=== PATIENT | female | born 1940 | race Caucasian/White ===

== ENCOUNTER 2016-10-14 09:58 | Outpatient (CLI) | payer MEDICARE | END 2016-10-14 09:59 | disposition home or self-care (01) | DX: E78.5 Hyperlipidemia, unspecified (principal); E87.1 Hypo-osmolality and hyponatremia; I10 Essential (primary) hypertension; E03.9 Hypothyroidism, unspecified; D64.9 Anemia, unspecified ==

== ENCOUNTER 2017-06-28 08:00 | Outpatient (CLI) | payer MEDICARE ==
[2017-06-28 12:34] LABS: BASOPHILS % (AUTO) 0.9 %; EOSINOPHILS # (AUTO) 0.1 10^3/uL (0.0-0.7); EOSINOPHILS % (AUTO) 2.6 %; HCT - HEMATOCRIT 36.4 % (37.0-47.0); HGB - HEMOGLOBIN 12.5 g/dL (12.0-16.0); LYMPHOCYTES % (AUTO) 21.6 %; MEAN CORPUSCULAR HEMOGLOBIN 32.6 pg (27.0-31.0); MEAN CORPUSCULAR HGB CONC 34.4 g/dL (32.0-36.0); MEAN CORPUSCULAR VOLUME 94.8 fL (81.0-99.0); MEAN PLATELET VOLUME 8.1 fL (7.9-10.8); MONOCYTES # (AUTO) 0.3 10^3/uL (0.0-1.0); MONOCYTES % (AUTO) 7.4 %; NEUTROPHILS # (AUTO) 3.1 10^3/uL (1.5-6.6); NEUTROPHILS % (AUTO) 67.5 %; NUCLEATED RED BLOOD CELLS AUTO 0.1 /100WBC; RED BLOOD COUNT 3.84 10^6/uL (4.20-5.40); RED CELL DISTRIBUTION WIDTH 12.7 % (12.0-15.0); UNCORRECTED WHITE BLOOD COUNT 4.6 x10^3/uL; WHITE BLOOD COUNT 4.6 x10^3/uL (4.8-10.8)
[2017-06-28 12:58] LABS: ALBUMIN/GLOBULIN RATIO 1.3 (1.0-2.2); BILIRUBIN,TOTAL 0.5 mg/dL (0.2-1.0); BUN - BLOOD UREA NITROGEN 30 mg/dL (6-20); CALCIUM 9.8 mg/dL (8.5-10.3); CARBON DIOXIDE - CO2 24 mmol/L (21-32); CHLORIDE 107 mmol/L (101-111); CHOL/HDL RATIO 2.1 (<4.4); CHOLESTEROL 165 mg/dL; CREATININE 1.1 mg/dL (0.4-1.0); GFR - MDRD 48 (>89); GLUCOSE 107 mg/dL (70-100); HDL CHOLESTEROL 78 mg/dL; LDL/HDL RATIO 0.9 (<4.4); SODIUM 141 mmol/L (135-145); TOTAL PROTEIN 7.5 g/dL (6.7-8.2); TRIGLYCERIDES 100 mg/dL; VLDL CHOLESTEROL 20 mg/dL
== END 2017-06-28 08:01 | disposition home or self-care (01) ==
LOC: LAB.WCP 08:00
PROVIDERS: ATTEND Family Medicine
DX: I10 Essential (primary) hypertension (principal); E78.5 Hyperlipidemia, unspecified; D64.9 Anemia, unspecified
CPT/HCPCS: 36415; 80053; 80061; 84443; 85025

== ENCOUNTER 2017-12-10 08:00 | Outpatient (CLI) | payer MEDICARE ==
[2017-12-10 12:12] LABS: EOSINOPHILS # (AUTO) 0.2 10^3/uL (0.0-0.7); EOSINOPHILS % (AUTO) 3.3 %; HGB - HEMOGLOBIN 12.7 g/dL (12.0-16.0); LYMPHOCYTES # (AUTO) 1.3 10^3/uL (1.5-3.5); LYMPHOCYTES % (AUTO) 29.2 %; MEAN CORPUSCULAR HEMOGLOBIN 32.4 pg (27.0-31.0); MEAN CORPUSCULAR HGB CONC 34.2 g/dL (32.0-36.0); MEAN CORPUSCULAR VOLUME 94.8 fL (81.0-99.0); MEAN PLATELET VOLUME 8.1 fL (7.9-10.8); MONOCYTES # (AUTO) 0.4 10^3/uL (0.0-1.0); MONOCYTES % (AUTO) 8.1 %; NEUTROPHILS # (AUTO) 2.7 10^3/uL (1.5-6.6); NEUTROPHILS % (AUTO) 58.4 %; PLT - PLATELET COUNT 248 10^3/uL (130-450); RED BLOOD COUNT 3.92 10^6/uL (4.20-5.40); RED CELL DISTRIBUTION WIDTH 13.2 % (12.0-15.0); WHITE BLOOD COUNT 4.6 x10^3/uL (4.8-10.8)
[2017-12-10 12:37] LABS: ALBUMIN/GLOBULIN RATIO 1.3 (1.0-2.2); ALKALINE PHOSPHATASE 84 IU/L (42-121); ALT ALANINE AMINOTRANSFERASE 15 IU/L (10-60); AST ASPARTATE AMINOTRANSFERASE 23 IU/L (10-42); BILIRUBIN,TOTAL 0.8 mg/dL (0.2-1.0); BUN - BLOOD UREA NITROGEN 30 mg/dL (6-20); CALCIUM 9.7 mg/dL (8.5-10.3); CARBON DIOXIDE - CO2 25 mmol/L (21-32); CHLORIDE 105 mmol/L (101-111); CHOL/HDL RATIO 2.2 (<4.4); CHOLESTEROL 166 mg/dL; CREATININE 1.1 mg/dL (0.4-1.0); GFR - MDRD 48 (>89); GLUCOSE 101 mg/dL (70-100); HDL CHOLESTEROL 75 mg/dL; LDL CHOLESTEROL,CALCULATED 77 mg/dL; SODIUM 139 mmol/L (135-145); TOTAL PROTEIN 7.2 g/dL (6.7-8.2); VLDL CHOLESTEROL 14 mg/dL
== END 2017-12-10 08:01 | disposition home or self-care (01) ==
LOC: LAB.WCP 08:00
PROVIDERS: ATTEND Family Medicine
DX: E78.5 Hyperlipidemia, unspecified (principal); E03.9 Hypothyroidism, unspecified; I10 Essential (primary) hypertension
CPT/HCPCS: 36415; 80053; 80061; 83721; 84443; 85025

== ENCOUNTER 2018-04-17 17:39 | Observation (INO) | payer MEDICARE ==
[2018-04-17 18:07] LABS: BASOPHILS # (AUTO) 0.1 10^3/uL (0.0-0.1); BASOPHILS % (AUTO) 1.1 %; EOSINOPHILS # (AUTO) 0.2 10^3/uL (0.0-0.7); HGB - HEMOGLOBIN 12.4 g/dL (12.0-16.0); LYMPHOCYTES # (AUTO) 1.4 10^3/uL (1.5-3.5); LYMPHOCYTES % (AUTO) 26.3 %; MEAN CORPUSCULAR HEMOGLOBIN 33.3 pg (27.0-31.0); MEAN CORPUSCULAR HGB CONC 35.1 g/dL (32.0-36.0); MEAN CORPUSCULAR VOLUME 94.9 fL (81.0-99.0); MEAN PLATELET VOLUME 7.7 fL (7.9-10.8); MONOCYTES # (AUTO) 0.5 10^3/uL (0.0-1.0); MONOCYTES % (AUTO) 10.6 %; NEUTROPHILS # (AUTO) 3.1 10^3/uL (1.5-6.6); PLT - PLATELET COUNT 254 10^3/uL (130-450); RED BLOOD COUNT 3.73 10^6/uL (4.20-5.40); RED CELL DISTRIBUTION WIDTH 13.4 % (12.0-15.0); WHITE BLOOD COUNT 5.2 x10^3/uL (4.8-10.8)
--- NOTE | 2018-04-17 18:08 | ED Physician Documentation ---
PD HPI CHEST PAIN - Stated complaint Stated Complaint: HIGH PLUSE - Chief complaint Chief Complaint: Cardiac - History obtained from History obtained from: Family - History of Present Illness Timing - onset: Other (History of [employer] pacemaker placed in 2016 for complete heart block. Followed now by Dr. Chavez in [place]. Had a flu shot Wednesday. Wednesday noticed that when she slept she could not hear her heartbeat like normal and has had persistently high pulse rate since then noted on the monitor of 130 or so. She is completely asymptomatic without chest pain, dizziness, or trouble breathing.) Review of Systems Ten Systems: 10 systems reviewed and negative Constitutional: denies: Fever, Chills Cardiac: denies: Chest pain / pressure, Palpitations Respiratory: denies: Dyspnea, Cough PD PAST MEDICAL HISTORY - Past Medical History Past Medical History: Yes Cardiovascular: Hypertension, High cholesterol Respiratory: None Endocrine/Autoimmune: HyPOthyroidism GI: None : None HEENT: None Psych: Claustrophobia Musculoskeletal: Osteoarthritis Derm: None - Past Surgical History Past Surgical History: Yes General: Cholecystectomy, Appendectomy, Colonoscopy Ortho: Hip replacement, Knee replacement /RAILROAD REPAIRER: Hysterectomy Cardiovascular: Pacemaker HEENT: Cataracts, Tonsil/Adenoidectomy - Present Medications Home Medications: Ambulatory Orders Medication Instructions Recorded Confirmed Cholecalciferol (Vitamin D3) 2,000 units PO DAILY 04/12/14 10/14/15 [Vitamin D-3] Folic Acid/Multivit-Min/Lutein 1 each PO DAILY 04/12/14 10/14/15 [Centrum Silver Chewable Tablet] Levothyroxine [Synthroid] 75 mcg PO QDAC 04/12/14 10/14/15 Lisinopril 40 mg PO DAILY 04/12/14 10/14/15 Simvastatin 40 mg PO QPM 04/12/14 10/14/15 Acetaminophen 500 mg PO Q4H PRN 10/08/15 10/14/15 Diclofenac Sodium/Misoprostol 1 each PO DAILY 10/08/15 10/14/15 [Diclofenac-Misoprost 75-200 Tb] [place]-3S/Dha/Epa/Fish Oil [Fish 1 cap PO DAILY 10/08/15 10/14/15 Oil 1,200 mg Softgel] amLODIPine [Norvasc] 5 mg ORAL DAILY 10/08/15 10/14/15 HYDROcod/ACETAM 5/325 [[place] 5/325] 1 tab PO Q6H PRN 10/09/15 10/14/15 - Allergies Allergies/Adverse Reactions: Allergies Allergy/AdvReac Type Severity Reaction Status Date / Time Sulfa (Sulfonamide AdvReac Intermediate Nausea Verified 04/12/14 11:03 Antibiotics) ibuprofen AdvReac Nausea Verified 10/03/15 14:36 oxycodone HCl * AdvReac Nausea Verified 10/03/15 14:36 [From Percocet] - Social History Does the pt smoke?: No Smoking Status: Never smoker Does the pt drink ETOH?: Yes Does the pt have substance abuse?: No - Family History Family history: reports: Non contributory - Immunizations Immunizations are current?: Yes PD ED PE NORMAL - Vitals Vital signs reviewed: Yes - General General: Alert and oriented X 3, No acute distress - HEENT HEENT: PERRL, EOMI - Neck Neck: Supple, no meningeal sign, No bony TTP - Cardiac Cardiac: RRR (Tachycardic without murmur) - Respiratory Respiratory: No respiratory distress, Clear bilaterally - Abdomen Abdomen: Normal bowel sounds, Soft, Non tender - Back Back: No CVA TTP, No spinal TTP - Derm Derm: Normal color, Warm and dry - Extremities Extremities: No edema, No calf tenderness / cord - Neuro Neuro: Alert and oriented X 3, Normal speech Results - Vitals Vitals: Vital Signs - 24 hr 04/17/18 17:46 Heart Rate 130 H Respiratory 16 Rate Blood Pressure 181/103 H O2 Saturation 98 Oxygen O2 Source [With Activity] Room air O2 Source [Without Activity] Room air O2 Source Room air - EKG (time done) 1747 Rate: Rate (enter#) (130) Rhythm: Paced (Ventricular paced) Computer interpretation: Agree with computer - Rads (name of study) 2v chest Radiology: EMP read contemporaneously (Large heart without CHF, no obvious problem with her pacemaker leads, bibasilar interstitial lung disease.) PD MEDICAL DECISION MAKING - ED course ED course: 78-year-old woman presents with an asymptomatic ventricular paced, pacemaker mediated tachycardia. I placed a magnet on her and she went down to a paced rate of 100, still asymptomatic. Spoke with her family resource management specialist on-call, Dr. Pang for Dr. Chavez who felt that it was probably an underlying atrial tachycardia and recommended a trial of adenosine and then long-term beta or calcium channel melissa pending follow-up. She was administered 6 mg of adenosine followed by 12 mg of adenosine, both rapid IV push without any change in her rate or rhythm. This was followed by metoprolol 5 mg IV. This had no change, the metoprolol was repeated, still without change, she was administered divided doses of diltiazem, still with no clinical change in a heart rate of 130. Case was discussed by phone with Dr. Joseph. I cannot discharge her obviously with a heart rate of [address] her in observation for medical management, she feels she likely has underlying atrial flutter. And she will be interrogated in the morning. - Sepsis Event Vital Signs: Vital Signs - 24 hr 04/17/18 17:46 Heart Rate 130 H Respiratory 16 Rate Blood Pressure 181/103 H O2 Saturation 98 Oxygen O2 Source [With Activity] Room air O2 Source [Without Activity] Room air O2 Source Room air Departure - Departure Disposition: ED Place in Observation Clinical Impression: Dehydration, Tachycardia, Pacemaker Condition: Serious
[2018-04-17 18:21] LABS: ALBUMIN/GLOBULIN RATIO 1.3 (1.0-2.2); BILIRUBIN,TOTAL 0.4 mg/dL (0.2-1.0); CALCIUM 9.3 mg/dL (8.5-10.3); CREATININE 1.6 mg/dL (0.4-1.0); MAGNESIUM 1.7 mg/dL (1.7-2.8); TOTAL PROTEIN 7.2 g/dL (6.7-8.2)
[2018-04-17] MEDS ORDERED: ADENOSINE 6 MG/2 ML VIAL IVP STA ×2 (19:03→19:12)
[2018-04-17] MEDS ORDERED: ADENOSINE 6 MG/2 ML VIAL IVP ONE (19:05)
[2018-04-17] MEDS ORDERED: METOPROLOL 5 MG/5 ML VIAL IVP STA ×2 (19:12→19:27)
--- NOTE | 2018-04-17 19:15 | XRAY Report ---
Reason: tachycardiac Procedure Date: 04/17/2018 Accession Number: [id number] / [id number] Procedure: XR - Chest 2 View X-Ray CPT Code: 78455 FULL RESULT: EXAM: CHEST RADIOGRAPHY EXAM DATE: 04/17/2018 06:41 PM. CLINICAL HISTORY: Tachycardiac. COMPARISON: CHEST 2 VIEW PA/LAT 10/08/2015 7:09 PM. TECHNIQUE: 2 views. FINDINGS: Lungs/Pleura: Mild basilar predominant interstitial lung disease. No focal opacities evident. No pleural effusion. No pneumothorax. Normal volumes. Mediastinum: Large heart. Minimal aortic calcification. Other: No compression fractures. Interval placement of dual lead left pacemaker. Advanced degenerative changes of both shoulders. IMPRESSION: 1. Large heart without CHF or acute pulmonary abnormalities. 2. Mild chronic basilar predominant interstitial lung disease. RADIA
[2018-04-17] MEDS ORDERED: diltiaZEM INJ 5 MG/ML VIAL IVP STA ×2 (20:05→20:34)
[2018-04-17] MEDS ORDERED: ACETAMINOPHEN 325 MG TABLET PO PRN (20:57)
[2018-04-17] MEDS ORDERED: ZOLPIDEM 5 MG TABLET PO PRN (20:57)
[2018-04-17] MEDS ORDERED: SODIUM CHLORIDE FLUSH 0.9% 10 ML SYRINGE IVP PRN (20:57)
[2018-04-17] MEDS ORDERED: SODIUM CHLORIDE 0.9% 1,000 ML IV SCH (21:00)
[2018-04-17 21:42] LABS: INR 1.1 (0.8-1.2); PT - PROTHROMBIN TIME 12.7 secs (9.9-12.6)
--- NOTE | 2018-04-18 00:13 | HISTORY & PHYSICAL EXAMINATION ---
DATE OF SERVICE: 04/17/2018 Physician: Anitha Joseph MD HISTORY OF PRESENT ILLNESS: This is an 78-year-old white female with a history of third-degree heart block, which required a pacemaker placement 2 years ago. This was around the time that she required hip surgery after falling and sustaining a hip fracture. She also has a history of hypertension, hyperlipidemia, hypothyroidism, DJD, status post cholecystectomy, appendectomy, total hysterectomy, cataract surgery, tonsil surgery and knee replacement. The patient went to doctor's visit and reports everything was fine except for "white coat hypertension." She received a flu shot at this visit. Following that, she noticed that she did not "hear her pulse in her ear", which she normally does when she falls asleep. This reoccurred on the second day and by the third day, she took her pulse and found it to be about 119. Once again, she did not worry about this until the following day when she repeated it, and it was again 119 and she called her doctor and the covering doctor advised to come to the emergency room. In the ER tonight, she was found to have a heart rate of 130, ventricular paced; which did not respond to Adenosine 6 mg, 12 mg, Metoprolol 5 mg IV x2, or Diltiazem 10 mg IV. The emergency room doctor reached out to the covering Stable Attendant for Dr. Chavez and that doctor advised that [employer] reprogram of her pacemaker since the reprogramming device was not transmitting from the ER over to [employer] when tried. The patient feels none of her rapid heart rates, feels no palpitations and has never had tachycardia before. She has no other symptoms. In general, specifically no dyspnea, orthopnea, chest pain, lightheadedness or syncope. She has had no change to medications. She has been on a trip of 2-1/2 weeks with her in an , but this was unremarkable. PAST MEDICAL HISTORY: Hypertension, hyperlipidemia, pacemaker placed 2 years ago, DJD. ALLERGIES: SULFA, MOTRIN, AND OXYCODONE. MEDICATIONS: 1. Amlodipine 5 mg daily. 2. Simvastatin 40 mg every night 3. [place] D3 daily. 4. Lisinopril 40 mg daily. 5. Synthroid 75 mcg daily. 6. Dana 5/325 q.6 hours p.r.n. arthritis pain. 7. Diclofenac 1 tablet daily. 8. Vitamin D3 2000 units daily. 9. Folic acid daily. 10. Centrum Silver daily. SOCIAL HISTORY: The patient is a nonsmoker, drinks rare alcohol, no illicit drug use. FAMILY HISTORY: Known heart diseases. REVIEW OF SYSTEMS: Comprehensive review of systems was performed and the pertinent positives are in the HPI. PHYSICAL EXAMINATION: GENERAL: Elderly white female who appears younger than her age. VITAL SIGNS: Blood pressure 120/96, heart rate 130 and regular, afebrile, room air saturation 94%. HEENT: Unremarkable. Oral mucosa is moist. NECK: Without JVD in a vertical position. No carotid bruits. LUNGS: Clear. HEART: Heart sounds are tachycardic. No murmurs. ABDOMEN: Soft, nontender. Normal bowel sounds. EXTREMITIES: 1+ pretibial edema. No clubbing or cyanosis. NEUROLOGIC: Intact. LABORATORIES: Normal electrolytes. BUN is 43. Creatinine 1.6, magnesium 1.7. Normal liver test normal. INR. White blood count 5.2, hemoglobin 12.4, platelet count 254. IMAGING DATA: Chest x-ray: Cardiomegaly and no acute lung disease. DIAGNOSTIC DATA: EKG: Ventricular pacing at a rate of 130. IMPRESSION/DIAGNOSES 1. Dehydration as evidenced by the elevated BUN and creatinine, which may be adding to the tachycardia. 2. Tachycardia. 3. Pacemaker-mediated tachycardia potentially versus atrial tachycardia with ventricular tracking. PLAN: Place the patient in Observation, on telemetry. Hold the ANDREW inhibitor and amlodipine; but continue her other medications. This is planned because of her multiple doses of heart rate slowing medications that she received, which may further drop her pressure. Also no amlodipine today, but will start Cardizem tomorrow. Soum was contacted from the ER and I just called myself to confirm that a termite control representative is coming tomorrow for reprogramming of her pacemaker. Then the underlying rhythm will be determined and if this is atrial flutter, further AV prema slowing medication may be needed such as beta blockers, higher Cardizem, or digoxin. An Echo will be ordered because of the cardiomegaly and to establish if there is any systolic heart failure since that would affect her CHADS score since she is over 75. If she has atrial flutter, consider an anticoagulant. We will check troponins x3 to rule out a silent cardiac event as the cause of the atrial tachycardia. We will also check a TSH to R/O thyroid med excess. CODE STATUS: FULL CODE. DVT PROPHYLAXIS: SCDs. ATTESTATION: The patient is expected to be discharged or transferred to another facility within 96 hours: Yes. cc: Doris Villegas MD TD: 04/17/2018 23:52 MTDD
[2018-04-18] MEDS: APIXABAN 2.5 MG TABLET PO SCH ×2 (00:31→08:52)
[2018-04-18] MEDS ORDERED: APIXABAN 2.5 MG TABLET PO SCH (01:00)
[2018-04-18] MEDS: SODIUM CHLORIDE FLUSH 0.9% 10 ML SYRINGE IVP SCH ×2 (03:18→08:53)
[2018-04-18 06:30] LABS: CALCIUM 9.3 mg/dL (8.5-10.3); CREATININE 1.2 mg/dL (0.4-1.0)
[2018-04-18] MEDS ORDERED: LEVOTHYROXINE 75 MCG TABLET PO SCH (07:00)
[2018-04-18] MEDS ORDERED: POLYETHYLENE GLYCOL 3350 17 GM PACKET PO SCH (09:00)
[2018-04-18] MEDS ORDERED: CHOLECALCIFEROL 1,000 UNIT TABLET PO SCH (09:00)
[2018-04-18] MEDS ORDERED: DICLOFENAC MISOPROSTOL PO SCH (09:00)
[2018-04-18] MEDS ORDERED: OMEGA-3 ACID ETHYL ESTERS 1 GM CAPSULE PO SCH (09:00)
[2018-04-18 09:58] VITALS: BP 119/59
--- NOTE | 2018-04-18 11:12 | Discharge Plan ---
Discharge Plan Disposition: 01 Home, Self Care Condition: Poor Diet: Regular Activity Restrictions: Activity as Tolerated Shower Restrictions: No (fall precaution) Instruction Topics: ED Pacer AICD Dc Additional Instructions or Follow Up instructions: You may follow up your PCP in one week, and follow up your smooth plater in two weeks. [employer] interrogated your pacemaker at hospital. Your pacemaker works well at HR 70 now. Should your symptoms return or worsen, you may present ER or call 911, or call your smooth plater or PCP for help. No Smoking: If you smoke, Please STOP! Call for help. Follow-up with: Doris Villegas MD [Primary Care Provider] -
--- NOTE | 2018-04-18 11:28 | DISCHARGE SUMMARY ---
Discharge Summary Discharge Date: 04/18/18 Discharging Provider: STORM Primary Care Provider: Dr. Villegas Condition at Discharge: Good Discharge Disposition: 01 Home, Self Care Discharge Facility Name: home - DIAGNOSES Admission Diagnoses: 1, malfunction of pacemaker 2, tachycardia, asymptomatic 3, dehydration Discharge Diagnoses with Status of Each Condition: 1, malfunction of pacemaker the pacemaker was interrogated by [employer] md senior research scientist, her pace return to her baseline as HR 70. Tele monitor continue to monitor pt and confirm her paced pause at 70. [employer] md senior research scientist confirm pt's pacemaker is working. pt is advise follow PCP and claims supervisor pt is asymptomatic, without any complains. all troponin serial are unremarkable 2, tachycardia, asymptomatic resolved 3, dehydration resolved - HPI History of Present Illness: pt was admitted for pacemaker malfunction. pt had hx of afib with Eliquis. After the pacemaker was interrogated by [employer] md senior research scientist, her pace return t o her baseline as HR 70. pt's ECHO are unremarkable. pt denies any complaints, no chest pain, troponin serial are unremarkable. Pt was d/c and follow her home meds regimen, PCP and claims supervisor. - ALLERGIES Allergies/Adverse Reactions: Allergies Allergy/AdvReac Type Severity Reaction Status Date / Time Sulfa (Sulfonamide AdvReac Intermediate Nausea Verified 04/12/14 11:03 Antibiotics) ibuprofen AdvReac Nausea Verified 10/03/15 14:36 oxycodone HCl * AdvReac Nausea Verified 10/03/15 14:36 [From Percocet] - MEDICATIONS Home Medications: Ambulatory Orders Medication Instructions Recorded Confirmed Cholecalciferol (Vitamin D3) 2,000 units PO DAILY 04/12/14 04/18/18 [Vitamin D3] Folic Acid/Multivit-Min/Lutein 1 each PO DAILY 04/12/14 04/18/18 [Centrum Silver Chewable Tablet] Levothyroxine [Synthroid] 75 mcg PO QDAC 04/12/14 04/18/18 Acetaminophen 500 mg PO Q4H PRN 10/08/15 04/18/18 Diclofenac Sodium/Misoprostol 1 tab PO DAILY 10/08/15 04/18/18 [Diclofenac-Misoprost 75-200 Tb] [place]-3S/Dha/Epa/Fish Oil [Fish 1 cap PO DAILY 10/08/15 04/18/18 Oil 1,200 mg Softgel] amLODIPine [Norvasc] 2.5 mg ORAL DAILY 10/08/15 04/18/18 Apixaban [Eliquis] 2.5 mg PO BID 04/18/18 04/18/18 Atorvastatin Calcium 20 mg PO QPM 04/18/18 04/18/18 Lisinopril 10 mg PO DAILY 04/18/18 04/18/18 Metoprolol Tartrate 12.5 mg PO DAILY 04/18/18 04/18/18 - PHYSICAL EXAM AT DISCHARGE General Appearance: positive: No acute distress, Alert. negative: Lethargic Eyes Bilateral: positive: Normal inspection, PERRL, No lid inflammation, Conjunctivae nml ENT: positive: ENT inspection nml, Pharynx nml, No signs of dehydration. negative: Purulent nasal drainage, Pharyngeal erythema, Oral lesions Neck: positive: Nml inspection, Thyroid nml, No JVD, Trachea midline. negative: Thyromegaly, Lymphadenopathy (R), Lymphadenopathy (L), Stiff neck, Carotid br uit, Swelling/bruising, Tracheal deviation Respiratory: positive: Chest non-tender, No respiratory distress, Breath sounds nml. negative: Wheezes, Rales, Rhonchi Cardiovascular: positive: Regular rate & rhythm, No murmur, No gallop. negative: Irregularly irregular, Extrasystoles, Tachycardia, Bradycardia, JVD present, Systolic murmur, Diastolic murmur Peripheral Pulses: positive: 2+ Abdomen: positive: Non-tender, No organomegaly, Nml bowel sounds, No distention. negative: Tenderness, Guarding, Rebound Back: positive: Nml inspection. negative: CVA tenderness (R), CVA tenderness (L) Skin: positive: Color nml, No rash, Warm, Dry. negative: Cyanosis, Diaphoresis, Pallor Extremities: positive: Non-tender, Full ROM, Nml appearance. negative: Calf tenderness, Joint swelling, Ralph's sign/cords Neurologic/Psychiatric: positive: Oriented x3, Motor nml, Sensation nml, Mood/affect nml. negative: Weakness, Sensory loss, Facial droop, Slurred/abnml speech, Depressed mood/affect - LABS Result Diagrams: 04/17/18 18:00 04/18/18 05:23 - FOLLOW UP Follow Up: You may follow up your PCP in one week, and follow up your claims supervisor in two weeks. [employer] interrogated your pacemaker at hospital. Your pacemaker works well at HR 70 now. Should your symptoms return or worsen, you may present ER or call 911, or call your claims supervisor or PCP for help. - TIME SPENT Time Spent in Discharge (Minutes): 50
== END 2018-04-18 12:03 | disposition home or self-care (01) ==
LOC: ED 17:39 → MS3 20:57
PROVIDERS: ADMIT Internal Medicine; ATTEND Nurse Practitioner Gerontology
DX: T82.119A Breakdown (mechanical) of unspecified cardiac electronic device, initial encounter (principal); R00.0 Tachycardia, unspecified; E86.0 Dehydration; I44.2 Atrioventricular block, complete; I48.91 Unspecified atrial fibrillation; I11.9 Hypertensive heart disease without heart failure; E03.9 Hypothyroidism, unspecified; E78.5 Hyperlipidemia, unspecified; M19.90 Unspecified osteoarthritis, unspecified site; Z79.899 Other long term (current) drug therapy; Z95.0 Presence of cardiac pacemaker
CPT/HCPCS: 36415; 71046; 80048; 80053; 83690; 83735; 84443; 84484; 85025; 85610; 93005; 93306; 96374; 96375; 96376; 99284; 99285; A9270; G0378; J0153

== ENCOUNTER 2018-07-14 14:17 | Outpatient (CLI) | payer MEDICARE ==
--- NOTE | 2018-07-15 09:43 | DEXA Report ---
Reason: OSTEOPENIA Procedure Date: 07/14/2018 Accession Number: [id number] / [id number] Procedure: DEX - Dexa Spine and/or Hip CPT Code: FULL RESULT: EXAM: Dexa Spine and/or Hip DATE: 07/14/2018 2:59 PM CLINICAL HISTORY: OSTEOPENIA TECHNIQUE: Dual energy x-ray absorptiometry (DXA) was performed on a [email or web address] System. Regions measured are the AP Spine, femoral neck, and if needed forearm. COMPARISON: 01/07/2016. In accordance with the International Society for Clinical Densitometry (ISCD) guidelines, data from previous exams may be reanalyzed using current recommendations and techniques. This is done to allow a more accurate basis for comparison with the current study. FINDINGS: The data for the lumbar spine is as follows: BMD (g/cm/cm) T-SCORE Z-SCORE REGION L1 1.180 0.4 2.0 L2 1.560 3.0 4.5 L3 1.595 3.3 4.8 L4 1.366 1.4 2.9 TOTAL 1.429 2.1 3.6 NOTE: All evaluable vertebrae are used for classification The data for the hip is as follows: BMD (g/cm/cm) T-SCORE Z-SCORE REGION Neck 0.736 -2.2 -0.2 TOTAL 0.702 -2.4 -0.6 NOTE: The femoral neck or total proximal femur, whichever is lowest, is used for classification. DXA RESULTS SUMMARY: Spine SCAN DATE AGE BMD CHANGE VS CHANGE VS PREVIOUS PREVIOUS % 07[birth year]14/2018 [age] 1.429 -0.049* -3.3* 01/07/2016 [age] 1.478 * Denotes significant change at the 95% confidence level. Denotes dissimilar scan types or analysis methods. DXA RESULTS SUMMARY: Hip SCAN DATE [age]GE BMD CHANGE VS CHANGE VS PREVIOUS PREVIOUS % [birth year]14[birth year]2018 78.4 0.702 -0.098* -12.3* 01/07/2016 [age] 0.800 * Denotes significant change at the 95% confidence level. Denotes dissimilar scan types or analysis methods. IMPRESSION: THE WHO CLASSIFICATION BASED ON THE INTERNATIONAL REFERENCE STANDARD IS OSTEOPENIA. THE FRACTURE RISK IS INCREASED. RECOMMENDATION: Patients with diagnosis of osteoporosis or osteopenia should have regular bone mineral density assessment. For those eligible for Medicare, routine testing is allowed once every 2 years. Testing frequency can be increased for patients who have rapidly progressing disease or for those who are receiving medical therapy to restore bone mass. COMMENT: World Health Organization (WHO) definitions for osteoporosis and osteopenia: NORMAL BMD: T-score at -1.0 or higher, fracture risk is low OSTEOPENIA BMD: T-score between -1.0 and -2.5, fracture risk is increased. OSTEOPOROSIS BMD: T-score at -2.5 or lower, fracture risk is high. National Osteoporosis Foundation recommends: 1. Obtain adequate dietary calcium (at least 1200 mg per day) and vitamin D (400-800 international units per day). 2. Participate, as appropriate, in regular weightbearing and muscle-strengthening exercise. 3. Avoid tobacco use and reduce alcohol and caffeine intake. 4. For more detailed information see the website at www.NOF.org.
== END 2018-07-14 14:18 | disposition home or self-care (01) ==
LOC: DI 14:17
PROVIDERS: ATTEND Family Medicine
DX: M85.88 Other specified disorders of bone density and structure, other site (principal)
CPT/HCPCS: 77080

== ENCOUNTER 2018-10-24 08:00 | Outpatient (CLI) | payer MEDICARE ==
[2018-10-24 19:45] LABS: ALBUMIN 4.2 g/dL (3.2-5.5); ALBUMIN/GLOBULIN RATIO 1.4 (1.0-2.2); ALKALINE PHOSPHATASE 75 IU/L (42-121); ALT ALANINE AMINOTRANSFERASE 17 IU/L (10-60); AST ASPARTATE AMINOTRANSFERASE 24 IU/L (10-42); BILIRUBIN,TOTAL 0.8 mg/dL (0.2-1.0); BUN - BLOOD UREA NITROGEN 37 mg/dL (6-20); CALCIUM 10.4 mg/dL (8.5-10.3); CARBON DIOXIDE - CO2 25 mmol/L (21-32); CHLORIDE 103 mmol/L (101-111); CHOLESTEROL 157 mg/dL; CREATININE 1.1 mg/dL (0.4-1.0); GFR - MDRD 48 (>89); GLUCOSE 113 mg/dL (70-100); HDL CHOLESTEROL 77 mg/dL; LDL CHOLESTEROL,CALCULATED 63 mg/dL; LDL/HDL RATIO 0.8 (<4.4); SODIUM 141 mmol/L (135-145); TOTAL PROTEIN 7.3 g/dL (6.7-8.2); VLDL CHOLESTEROL 17 mg/dL
[2018-10-24 19:47] LABS: BASOPHILS % (AUTO) 0.8 %; EOSINOPHILS # (AUTO) 0.1 10^3/uL (0.0-0.7); EOSINOPHILS % (AUTO) 2.7 %; HGB - HEMOGLOBIN 13.4 g/dL (12.0-16.0); LYMPHOCYTES # (AUTO) 1.1 10^3/uL (1.5-3.5); LYMPHOCYTES % (AUTO) 22.6 %; MEAN CORPUSCULAR HEMOGLOBIN 32.2 pg (27.0-31.0); MEAN CORPUSCULAR HGB CONC 33.2 g/dL (32.0-36.0); MEAN CORPUSCULAR VOLUME 96.9 fL (81.0-99.0); MEAN PLATELET VOLUME 8.4 fL (7.9-10.8); MONOCYTES # (AUTO) 0.4 10^3/uL (0.0-1.0); MONOCYTES % (AUTO) 8.7 %; NEUTROPHILS # (AUTO) 3.1 10^3/uL (1.5-6.6); NEUTROPHILS % (AUTO) 65.2 %; PLT - PLATELET COUNT 265 10^3/uL (130-450); RED BLOOD COUNT 4.16 10^6/uL (4.20-5.40); RED CELL DISTRIBUTION WIDTH 13.4 % (12.0-15.0); WHITE BLOOD COUNT 4.8 x10^3/uL (4.8-10.8)
== END 2018-10-24 23:59 | disposition home or self-care (01) ==
LOC: LAB.WCP 08:00
PROVIDERS: ATTEND Family Medicine
DX: I10 Essential (primary) hypertension (principal); E78.5 Hyperlipidemia, unspecified; E03.9 Hypothyroidism, unspecified
CPT/HCPCS: 36415; 80053; 80061; 83721; 84443; 85025

== ENCOUNTER 2019-02-12 15:20 | Emergency (ER) | payer MEDICARE ==
[2019-02-12 15:30] VITALS: BP 138/85
--- NOTE | 2019-02-12 16:33 | ED Physician Documentation ---
History of Present Illness - Stated complaint Stated Complaint: LEFT FOOT INJURY - Chief complaint Chief Complaint: Trauma Ext - Additonal information Additional information: This is an 78-year-old female who presents with a left ankle injury. 5 days ago patient was walking her house when she tripped, she caught herself on her left leg, which has a chronic knee injury, and she felt a pop. Since then she had some swelling and pain in her left ankle which is moderate and has been somewhat progressive as she has continued to walk on it. She denies tingling, numbness, or new weakness in the ankle, she states that her left leg overall is somewhat weak due to past knee replacements. No fever. She has been icing it and intermittently taking some Tylenol. 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 Cardiovascular: Pacemaker HEENT: Cataracts, Tonsil/Adenoidectomy - Present Medications Home Medications: Ambulatory Orders Medication Instructions Recorded Confirmed RX: Cholecalciferol (Vitamin D3) 2,000 units PO DAILY 04/12/14 04/18/18 [Vitamin D3] RX: Folic Acid/Multivit-Min/Lutein 1 each PO DAILY 04/12/14 04/18/18 [Centrum Silver Chewable Tablet] RX: Levothyroxine [Synthroid] 75 mcg PO QDAC 04/12/14 04/18/18 RX: Acetaminophen 500 mg PO Q4H PRN 10/08/15 04/18/18 RX: Diclofenac Sodium/Misoprostol 1 tab PO DAILY 10/08/15 04/18/18 [Diclofenac-Misoprost 75-200 Tb] RX: [place]-3S/Dha/Epa/Fish Oil 1 cap PO DAILY 10/08/15 04/18/18 [Fish Oil 1,200 mg Softgel] RX: amLODIPine [Norvasc] 2.5 mg ORAL DAILY 10/08/15 04/18/18 RX: Apixaban [Eliquis] 2.5 mg PO BID 04/18/18 04/18/18 RX: Atorvastatin Calcium 20 mg PO QPM 04/18/18 04/18/18 RX: Lisinopril 10 mg PO DAILY 04/18/18 04/18/18 RX: Metoprolol Tartrate 12.5 mg PO DAILY 04/18/18 04/18/18 - Allergies Allergies/Adverse Reactions: Allergies Allergy/AdvReac Type Severity Reaction Status Date / Time Sulfa (Sulfonamide AdvReac Intermediate Nausea Verified 02/12/19 15:28 Antibiotics) ibuprofen AdvReac Nausea Verified 02/12/19 15:28 oxycodone HCl * AdvReac Nausea Verified 02/12/19 15:28 [From Percocet] - Social History Does the pt smoke?: No Smoking Status: Never smoker Does the pt drink ETOH?: Yes Does the pt have substance abuse?: No - Immunizations Immunizations are current?: Yes PD ED PE NORMAL - Vitals Vital signs reviewed: Yes - General General: Alert and oriented X 3, No acute distress - Cardiac Cardiac: RRR - Respiratory Respiratory: Clear bilaterally - Abdomen Abdomen: Non distended - Derm Derm: Warm and dry - Extremities Extremities: Other (Left ankle has some mild edema extending to the foot. There is some tenderness over the medial anterior aspect of the ankle with palpation. No lateral malleolar tenderness. The fifth Metatarsal is nontender. Capillary refill is brisk over all digits, patient able to wiggle her toes, sensation to light touch intact.) - Neuro Neuro: Alert and oriented X 3 - Psych Psych: Normal mood, Normal affect Results - Vitals Vitals: Vital Signs - 24 hr 02/12/19 15:25 Temperature 36.5 C Heart Rate 70 Respiratory 17 Rate Blood Pressure 138/85 H O2 Saturation 96 Oxygen O2 Source [With Activity] Room air O2 Source [Without Activity] Room air O2 Source Room air - Rads (name of study) ankle XR Radiology: Final report received (No acute fracture or dislocation) PD MEDICAL DECISION MAKING - ED course Complexity details: considered differential (strain, sprain, fracture, dislocation, contusion, tendinitis) ED course: ON exam patient is non-toxic. She has tenderness over the anterior and medial aspect of the ankle, but is neurovascularly intact and able to bear weight on the extremity. XR shows no acute fracture or dislocation. It shows a chronic 5th metatarsal fracture but she is not tender in this region. I discussed this resul t and the possibilities of contusion, sprain, or tendinitis. I discussed supportive care/ RICE therapy. I recommended follow up with her PCP and reviewed return precautions such as signs of infection or greatly worsening pain. Patient agreed and was discharged in care of her . Departure - Departure Disposition: 01 Home, Self Care Clinical Impression: Ankle injury Condition: Good Instructions: Ankle Sprain Follow-Up: Doris Villegas MD [Primary Care Provider] - Within 1 week (For follow up on ankle pain) Comments: You were seen for ankle pain. I did not see signs of broken bones. Please rest, ice, elevate, and wrap your ankle. Please follow up with your PCP within one week. Discharge Date/Time: 02/12/19 17:21
--- NOTE | 2019-02-12 16:39 | XRAY Report ---
Reason: ankle pain after fall 2 nights ago Procedure Date: 02/12/2019 Accession Number: [id number] / [id number] Procedure: XR - Ankle 3 View LT CPT Code: FULL RESULT: EXAM: LEFT ANKLE RADIOGRAPHY EXAM DATE: 02/12/2019 04:27 PM. CLINICAL HISTORY: Left ankle pain after fall 2 nights ago. COMPARISON: None. TECHNIQUE: 3 views. FINDINGS: Bones: Osteopenic. Partially imaged chronic fracture deformity of the fifth metatarsal. Tiny plantar and posterior calcaneal spurs. No acute fracture is seen. Joints: Pes planus. Normal alignment of the ankle. The ankle mortise is symmetric. No tibiotalar joint effusion. Moderate joint space loss and osteophytosis in the mid foot. Soft Tissues: Swelling overlying the anterolateral ankle. IMPRESSION: 1. Osteopenia. No acute bony abnormality is evident. 2. Chronic fracture deformity of the fifth metatarsal. 3. Pes planus. 4. 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 RADIA
== END 2019-02-12 17:21 | disposition home or self-care (01) ==
LOC: ED 15:20
DX: S99.912A Unspecified injury of left ankle, initial encounter (principal); X50.1XXA Overexertion from prolonged static or awkward postures, initial encounter; Y93.01 Activity, walking, marching and hiking; Y92.009 Unspecified place in unspecified non-institutional (private) residence as the place of occurrence of the external cause; I10 Essential (primary) hypertension
CPT/HCPCS: 99282; 99283

== ENCOUNTER 2019-03-03 10:02 | Outpatient (CLI) | payer MEDICARE ==
--- NOTE | 2019-03-04 08:08 | XRAY Report ---
Reason: RIGHT KNEE PAIN Procedure Date: 03/03/2019 Accession Number: [id number] / [id number] Procedure: WCP - Knee 3 View RT CPT Code: FULL RESULT: EXAM: RIGHT KNEE RADIOGRAPHY EXAM DATE: 03/03/2019 09:58 AM. CLINICAL HISTORY: Right knee pain post fall. COMPARISON: None. TECHNIQUE: 3 views. FINDINGS: Bones and Joints: Right knee prosthesis appears unremarkable. No acute fracture or malalignment. Soft Tissues: Normal. No soft tissue swelling. IMPRESSION: 1. Right knee prosthesis appears unremarkable. 2. No acute fracture or malalignment. RADIA
--- NOTE | 2019-03-04 08:08 | XRAY Report ---
Reason: LEFT ANKLE PAIN Procedure Date: 03/03/2019 Accession Number: [id number] / [id number] Procedure: WCP - Ankle 3 View LT CPT Code: FULL RESULT: EXAM: LEFT ANKLE RADIOGRAPHY EXAM DATE: 03/03/2019 10:02 AM. CLINICAL HISTORY: Left ankle pain post fall. COMPARISON: ANKLE 3 VIEW LT 02/12/2019 4:10 PM. TECHNIQUE: 3 views. FINDINGS: Bones: Pes planes. Osteopenia. Subtle distal fibular tip avulsion fracture versus less likely artifact. Joints: No ankle malalignment. Moderate midfoot and hindfoot degenerative changes. Soft Tissues: Soft tissue swelling. IMPRESSION: 1. Osteopenic left ankle with subtle distal fibular tip avulsion fracture suspected versus less likely artifact. If indicated, MRI could be used to increase sensitivity. 2. Moderate arthritic changes in the mid/hindfoot. RADIA
== END 2019-03-03 23:59 | disposition home or self-care (01) ==
LOC: DI.WCP 10:02 → EDSTATUS 13:17 → DI.WCP 23:59
PROVIDERS: ATTEND Family Medicine
DX: M85.872 Other specified disorders of bone density and structure, left ankle and foot (principal); M19.072 Primary osteoarthritis, left ankle and foot; M25.561 Pain in right knee; Z96.651 Presence of right artificial knee joint

== ENCOUNTER 2019-03-21 14:37 | Outpatient (CLI) | payer MEDICARE ==
--- NOTE | 2019-03-22 14:51 | CT Report ---
Reason: ANKLE PAIN Procedure Date: 03/21/2019 Accession Number: [id number] / [id number] Procedure: CT - LOWER EXTREMITY WO - LT CPT Code: FULL RESULT: EXAM: LEFT ANKLE CT WITHOUT CONTRAST EXAM DATE: 03/21/2019 03:07 PM. CLINICAL HISTORY: Ankle pain. COMPARISON: ANKLE 3 VIEW LT 03/03/2019 10:02 AM. TECHNIQUE: Thin-section axial images were acquired of the ankle without contrast. Post-processing: Coronal and sagittal reformats. Other: None. In accordance with CT protocol optimization, one or more of the following dose reduction techniques were utilized for this exam: automated exposure control, adjustment of mA and/or KV based on patient size, or use of iterative reconstructive technique. FINDINGS: Bones: There is moderate generalized osteopenia. There are numerous subarticular cysts in the tarsal bones. Joints: There is moderate to severe joint space narrowing affecting the intertarsal joints, tarsometatarsal, calcaneocuboid and subtalar joints. There is soft tissue calcification posterior to the distal tibiofibular joint. The findings suggest moderate to severe osteoarthritis. There is flattening of the plantar arch. Musculature: Normal. No fatty atrophy. Other: Bony opacity seen adjacent to the navicular tubercle may indicate tibialis posterior tendinosis. IMPRESSION: 1. Flattening of the plantar arch. 2. Moderate to severe osteoarthritis of the midfoot. 3. Soft tissue calcification posterior to the tibiofibular joint may indicate synovial inflammation. 4. Moderate generalized osteopenia. RADIA
== END 2019-03-21 14:38 | disposition home or self-care (01) ==
LOC: DI 14:37
PROVIDERS: ATTEND Family Medicine
DX: M19.072 Primary osteoarthritis, left ankle and foot (principal); M85.872 Other specified disorders of bone density and structure, left ankle and foot

== ENCOUNTER 2019-05-02 13:07 | Outpatient (CLI) | payer MEDICARE ==
[2019-05-02 16:48] VITALS: BP 140/80
--- NOTE | 2019-05-02 16:48 | SLEEP CARE CONSULTATION ---
Information from patient questionnaire entered by Lilia Sebastian. I have reviewed and concur with the information entered by Lilia Sebastian. This document represents the service I personally performed and the decisions made by me, Sushma Luong MD, [facility]. History of Present Illness Reason for Visit: New patient Chief Complaint: reports: Other (Dr. alan) Usual bedtime: 12am Time it takes to fall asleep: immediately Snores at night: No Observed to quit breathing while asleep: No Sleeps alone due to snoring: No Number of times waking at night: varies- 3 times Reasons for waking at night: reports: Bathroom Toss, Turn, or Twitch while sleeping: No Recalls having dreams: Yes Usually gets out of bed at: [id number] Feels refreshed in the morning: No (never have and never will) Morning headache: No Sleepy or fatigued during the day: No Ever fallen asleep while driving: No Takes day naps: No Dreams during day naps: No Prior sleep studies: Yes Additional HPI information: I had the pleasure of seeing Mrs. Singh along with her today regarding the possibility of her having a sleep disorder. As you know, she is an 79 year old lady who has atrial fibrillation. The patient tells me that she normally goes to bed around midnight, and it takes her approximately just a few minutes to fall asleep. She used to snore but none now after having lost 65 lbs. She has never been observed to stop breathing in her sleep. Her spouse can still sleep in the same bed. She can recall waking up on the average of 3 times during the night. Most of the time she wakes up because of having to use the bathroom. She has awakened because of her own snoring, choking, or having to gasp for air. There is not a lot of tossing and turning in her sleep. No somniloquy (sleep talking) or somnambulism (sleep walking). Generally she can recall having dreams. In the morning she usually gets up out of the bed around 8 - 9 a.m. not feeling refreshed nor rested. She usually does not have a morning headache. During the day she does not feel sleepy and fatigued. Her score on Wagner Sleepiness Scale is 1 out of 24. She has never fallen asleep while driving nor has had any accident due to sleepiness. She usually does not take naps during the day. Upon falling asleep during the day she denies having vivid dreams. She has never had sleep paralysis, experienced cataplexy or symptoms of restless leg syndrome. She denies having impaired concentration during the day. Subjective Initial Wagner Sleepiness Scale score: 1 Past Medical History Past Medical History: reports: Hypertension, Arthritis Social History The patient's occupation is retired. Patient is and lives in [place]. Have you smoked in the past 12 months: No Alcohol use: Yes Alcohol amount and frequency: 1/night Caffeine use: Yes Caffeine amount and frequency: 2 cups tea/am Family History Family history of sleep disordered breathing: No (maybe ) Family Hx Sleep Apnea: Sibling: Sleep apnea - Untreated (uncle), Grandparent: Sleep apnea - Treated (niece) Allergies and Home Medications Drug allergies reviewed: Yes Home medication list reviewed: Yes Review of Systems Cardiovascular: reports: high blood pressure, leg or foot swelling (*foot swelling) Respiratory: denies: shortness of breath, wheeze, sputum production, chronic cough, other Gastrointestinal: reports: diarrhea (after surgeries) Urinary: denies: incontinence, frequency, urgency, impotence, other Neurological: denies: headaches, seizure, head trauma, disorientation, speech dysfunction, gait or balance problems, fainting or unconsciousness, other Psychiatric: denies: Attention Deficit Hyperactivity, anxiety, depression, mood disorder, claustrophobia, other Ear/Nose/Throat: reports: wisdom teeth removed Endocrine: reports: too hot or cold (cold) Musculoskeletal: reports: joint pain, mobility problems (broken leg) Immunologic: reports: sneezing (runny nose) Physical Exam Vital signs obtained and entered by: Dr. Luong Blood Pressure: 140/80 Cuff size: regular Heart Rate: 70 O2 Saturation: 98 Height: 5 ft 4.5 in Weight: 169 lb Body Mass Index: 28.5 BMI Classification: Overweight Neck circumference: 13.5 Mood/affect: normal HEENT: No craniofacial malformation Nostrils: patent to airflow Turbinates: normal Septum: midline Mouth and throat: normal Soft palate: normal Hard palate: normal Uvula: normal Uvula visualization: 100% Mallampati Class I Tongue: normal in size Tonsils: absent bilaterally Chin and jaw: normal size and position Neck: normal w/o lymphadenopathy or thyromegaly Heart: regular rate and rhythm Lungs: clear bilaterally Abdomen: soft, non-tender Extremities: no edema or clubbing Neurologic: intact, no focal deficits Impression and Plan IMPRESSION: 1. Possible Obstructive Sleep Apnea-Hypopnea Syndrome, as suggested by history of snoring, frequent awakenings during the night, and unrefreshed sleep. Obstructive sleep apnea, left untreated, can increase the risk of recurrent paroxysmal atrial fibrillation. Pathophysiology of sleep-disordered breathing was discussed. I recommend proceeding to polysomnography to confirm the diagnosis and to assess severity. I informed the patient of what the sleep studies involve and after some discussion, she would like to have a home sleep apnea test (HSAT) instead. Plan: 1. Order a home sleep apnea test (HSAT). 2. Attempt to lose some weight. 3. Return for follow up after the test. I spent 100% of this 20 minute visit face to face with the patient with greater than 50% of this was spent time counseling the patient and coordination of care.
== END 2019-05-02 13:08 | disposition home or self-care (01) ==
LOC: SC 13:07
PROVIDERS: ATTEND Internal Medicine Pulmonary Disease
DX: G47.8 Other sleep disorders (principal); R06.83 Snoring; I48.91 Unspecified atrial fibrillation
CPT/HCPCS: 99203; G0463; 99212

== ENCOUNTER 2019-05-28 19:30 | Outpatient (CLI) | payer MEDICARE | END 2019-05-28 23:59 | disposition home or self-care (01) | LOC: SC 19:30 | PROVIDERS: ATTEND Internal Medicine Pulmonary Disease | DX: G47.33 Obstructive sleep apnea (adult) (pediatric) (principal) | CPT/HCPCS: G0399 ×2; 95806 ==

== ENCOUNTER 2019-06-22 12:56 | Outpatient (CLI) | payer MEDICARE ==
[2019-06-22 13:47] VITALS: BP 154/80
--- NOTE | 2019-06-22 13:47 | SLEEP CARE CONSULTATION ---
Information from patient questionnaire entered by Caryl Hensley. I have reviewed and concur with the information entered by Caryl Hensley. This document represents the service I personally performed and the decisions made by me, Luz Mittal, RN, MSN, [employer]. History of Present Illness Accompanied by: Spouse Initial [place] Sleepiness Scale score: 1 Current [place] Sleepiness Scale score: 2 Additional HPI information: YAQUELIN SINGH returns with spouse for follow up of the recently performed home sleep study and informed of findings. I explained the pathophysiology behind obstructive sleep apnea. We then spent quite a bit of time discussing different treatment options. For mild obstructive sleep apnea, surgery and oral appliance are alternatives to nasal CPAP therapy but in moderate or severe cases, nasal CPAP is the most effective and reliable treatment. I reviewed the impact of weight changes on sleep apnea and strongly recommended losing weight. After some discussion, the patient opted to go with the nasal CPAP therapy. I explained how initiation of CPAP can be done in lab polysomnography or with autoCPAP. After some discussion she chose autoCPAP as she feels she would not be able to sleep in lab. Nasal autoCPAP set at [id number] will be ordered with rationale explained. A manual titration study will be ordered if unable to find optimal pressure with office adjustments. I explained how CPAP machine works with sample devices [employer] Dream[employer] and [employer] [id number] and what to expect when using the machine. Using CPAP every night in order to get used to it was emphasized. Patient advised to put CPAP mask on before getting into bed so as not to fall asleep without CPAP. To assist acclimation to CPAP use, it could also be used for a short time during day while reading or watching TV. The patient was instructed to call the CPAP supplier to discuss any mechanical problem that may occur. If the mask given is uncomfortable or is difficult to keep on through the night even with adjustment, contact the CPAP supplier as many will replace with another mask style if notified before 30 days. If snoring or perceives is not getting enough air or too much air from the machine, notify this office. [facility] patient education PAP tips reviewed and given to patient. Patient counseled not drink alcohol less than 4 hours before bedtime as it can increase snoring and apnea. Patient was cautioned about risks of drowsy driving until sleepiness symptoms resolve. Patient denies drowsy driving. AASM patient education on snoring and sleep apnea given and reviewed. Sleep Study - Polysomnography Polysomnography findings: Home Sleep study findings: SLEEP TIME AND EFFICIENCY: The sleep study recording began at 11:29:52 PM and ended at 07:40:18 AM. Total recording time was 490.4 minutes. The total sleep time was 424.3 minutes. The sleep efficiency was 86.5 percent. The patient spent 357.1 minutes supine, and spent 67.3 minutes non-supine. The patients own estimate of sleep time was 5.00 hours. RESPIRATORY DATA: The AHI in this report is indexed to sleep time based on actigraphy. The AASM defines this as RIANA. The AHI on this type 3 Home Sleep Study may understate the AHI determined on a type 1 or 2 study, since EEG is not monitored resulting in the inability to score non-desaturating hypopneas. Based on 4% Calculation: The AHI4% calculation of 26.9 per hour of recording time was based on a total of 97 scored apneas and 93 scored hypopneas with 4% desaturations. Supine AHI4%: 26.2 per hour. Non-supine AHI4%: 25.0 per hour. Oxygen Summary: Patient's baseline O2 saturation was 96.6 %. The patient spent 43.8 minutes at an oxygen saturation less than 90%, and 18.6 minutes less than 85%. The desaturation index was 25.6 events per hour sleep time. The lowest saturation was 63.5 %. SNORING: The percent of the study time spent snoring was 0.0 %. The Snoring Count was 7 . The Snoring Index was 1.0 Patient Name: Yaquelin Singh Study Date: 05/28/2019 : 02/14/1941 Page 2 of 7 . PULSE RATE REVIEW: The mean heart rate was 67 beats per minute. The rate ranged from a low of 27 to a high of 109 beats per minute. DIAGNOSIS CODE: Moderate obstructive sleep apnea G47.33 Moderate desaturations were noted. Allergies and Home Medications Known drug allergies: Yes (see above list) Home medication list reviewed: Yes (see list - no diclofenac ) Allergy and home medication list: amlodipine 2.5mg daily metoprolol 12.5mg daily lisinopril 10mg daily levothyroxine 75mcg daily atorvastatin 20mg Hs Apixaban 2.5mg bid [place] Fhis oil 1 cap daily Centrum Silver chewable tablets daily Vitamin D3 2000 units daily Acetaminophen 500mg every 4 hour prn Review of Systems Review of systems same as previous: Yes Physical Exam Blood Pressure: 154/80 Cuff size: long Heart Rate: 70 O2 Saturation: 94 Weight: 170 lb 6.4 oz Impression and Plan 1. Obstructive Sleep Apnea-Hypopnea Syndrome, moderate, with lowest oxygen saturation of 63.5%. Obviously this is the cause of the patients symptoms of unrefreshed sleep, and excessive daytime sleepiness. Positive pressure therapy could benefit her atrial fibrillation and hypertension. As mentioned above, the patient will be started on nasal autoCPAP therapy with pressure set at 4-15 cmH2 O. A manual titration study will be completed if unable to find optimal treatment pressure with office adjustments. Compliance guidelines also reviewed. A copy of compliance guidelines will be given for reference at check out. * Nasal auto CPAP therapy, pressure at 4-15 cm H2O. * Attempt to lose weight. * Avoid alcohol consumption near bedtime. * The patient is again cautioned about driving until sleepiness completely reso lves. * Return one month after CPAP obtained. I will assess response to therapy and compliance at that time. I spent 100% of this 37 minute visit face to face with the patient with greater than 50% of this was spent time counseling the patient and coordination of care.
== END 2019-06-22 12:57 | disposition home or self-care (01) ==
LOC: SC 12:56
PROVIDERS: ATTEND Nurse Practitioner Family
DX: G47.33 Obstructive sleep apnea (adult) (pediatric) (principal)
CPT/HCPCS: 99214; G0463; 99212

== ENCOUNTER 2020-07-09 23:28 | Outpatient (CLI) | payer MEDICARE | END 2020-07-09 23:29 | disposition EMS.NT | LOC: EMS 23:28 | PROVIDERS: ATTEND Surgery | DX: Z03.89 Encounter for observation for other suspected diseases and conditions ruled out (principal) ==

== ENCOUNTER 2020-08-01 08:00 | Outpatient (CLI) | payer MEDICARE ==
[2020-08-01 18:46] LABS: BASOPHILS % (AUTO) 0.6 %; EOSINOPHILS # (AUTO) 0.1 10^3/uL (0.0-0.7); EOSINOPHILS % (AUTO) 1.7 %; LYMPHOCYTES # (AUTO) 0.9 10^3/uL (1.5-3.5); LYMPHOCYTES % (AUTO) 17.3 %; MEAN CORPUSCULAR HEMOGLOBIN 32.8 pg (27.0-31.0); MEAN CORPUSCULAR HGB CONC 32.2 g/dL (32.0-36.0); MEAN PLATELET VOLUME 9.9 fL (7.9-10.8); MONOCYTES # (AUTO) 0.3 10^3/uL (0.0-1.0); MONOCYTES % (AUTO) 5.8 %; NEUTROPHILS # (AUTO) 3.9 10^3/uL (1.5-6.6); NEUTROPHILS % (AUTO) 74.2 %; PLT - PLATELET COUNT 257 10^3/uL (130-450); RED BLOOD COUNT 3.96 10^6/uL (4.20-5.40); RED CELL DISTRIBUTION WIDTH 12.4 % (12.0-15.0); WHITE BLOOD COUNT 5.2 x10^3/uL (4.8-10.8)
[2020-08-01 19:12] LABS: ALBUMIN 4.1 g/dL (3.2-5.5); ALBUMIN/GLOBULIN RATIO 1.2 (1.0-2.2); ALKALINE PHOSPHATASE 101 IU/L (42-121); ALT ALANINE AMINOTRANSFERASE 15 IU/L (10-60); AST ASPARTATE AMINOTRANSFERASE 23 IU/L (10-42); BILIRUBIN,TOTAL 0.8 mg/dL (0.2-1.0); BUN - BLOOD UREA NITROGEN 17 mg/dL (6-20); CALCIUM 9.8 mg/dL (8.5-10.3); CARBON DIOXIDE - CO2 29 mmol/L (21-32); CHLORIDE 101 mmol/L (101-111); CHOL/HDL RATIO 1.8 (<4.4); CHOLESTEROL 155 mg/dL; GLUCOSE 147 mg/dL (70-100); HDL CHOLESTEROL 86 mg/dL; LDL CHOLESTEROL,CALCULATED 58 mg/dL; LDL/HDL RATIO 0.7 (<4.4); TOTAL PROTEIN 7.4 g/dL (6.7-8.2); VLDL CHOLESTEROL 11 mg/dL
== END 2020-08-01 23:59 | disposition home or self-care (01) ==
LOC: LAB.WCP 08:00
PROVIDERS: ATTEND Family Medicine
DX: I48.91 Unspecified atrial fibrillation (principal); E78.5 Hyperlipidemia, unspecified; E03.9 Hypothyroidism, unspecified
CPT/HCPCS: 36415; 80053; 80061; 83721; 84443; 85025

== ENCOUNTER 2021-01-29 08:00 | Outpatient (CLI) | payer MEDICARE ==
[2021-01-29 18:05] LABS: BASOPHILS % (AUTO) 0.4 %; EOSINOPHILS # (AUTO) 0.1 10^3/uL (0.0-0.7); EOSINOPHILS % (AUTO) 1.3 %; HCT - HEMATOCRIT 44.3 % (37.0-47.0); HGB - HEMOGLOBIN 14.1 g/dL (12.0-16.0); LYMPHOCYTES # (AUTO) 0.7 10^3/uL (1.5-3.5); LYMPHOCYTES % (AUTO) 13.4 %; MEAN CORPUSCULAR HEMOGLOBIN 32.2 pg (27.0-31.0); MEAN CORPUSCULAR HGB CONC 31.8 g/dL (32.0-36.0); MEAN CORPUSCULAR VOLUME 101.1 fL (81.0-99.0); MEAN PLATELET VOLUME 10.4 fL (7.9-10.8); MONOCYTES # (AUTO) 0.4 10^3/uL (0.0-1.0); MONOCYTES % (AUTO) 7.8 %; NEUTROPHILS # (AUTO) 4.1 10^3/uL (1.5-6.6); NEUTROPHILS % (AUTO) 76.7 %; PLT - PLATELET COUNT 250 10^3/uL (130-450); RED BLOOD COUNT 4.38 10^6/uL (4.20-5.40); RED CELL DISTRIBUTION WIDTH 12.6 % (12.0-15.0); WHITE BLOOD COUNT 5.4 x10^3/uL (4.8-10.8)
[2021-01-29 18:53] LABS: ALBUMIN 4.6 g/dL (3.2-5.5); ALBUMIN/GLOBULIN RATIO 1.4 (1.0-2.2); BILIRUBIN,TOTAL 0.9 mg/dL (0.2-1.0); CALCIUM 10.1 mg/dL (8.5-10.3); CREATININE 1.1 mg/dL (0.4-1.0); POTASSIUM 4.5 mmol/L (3.5-5.0); TOTAL PROTEIN 7.9 g/dL (6.7-8.2)
[2021-01-29 19:00] LABS: THYROID STIMULATING HORMONE 2.16 uIU/mL (0.34-5.60)
== END 2021-01-29 23:59 | disposition home or self-care (01) ==
LOC: LAB.WCP 08:00
PROVIDERS: ATTEND Family Medicine
DX: I48.91 Unspecified atrial fibrillation (principal); E03.9 Hypothyroidism, unspecified
CPT/HCPCS: 36415; 80053; 84443; 85025